=== PATIENT | female | born 1985 | race African-American/Black ===

== ENCOUNTER 2020-07-12 20:40 | Emergency (ER) | payer OTHER ==
[2020-07-12 21:02] VITALS: BP 113/73; PULSE 93; TEMP 98.2; BMI 29.2
[2020-07-12] MEDS ORDERED: ACETAMINOPHEN 1000 MG/100 ML VIAL (NON FORMULARY) IVPB ONE (21:55)
[2020-07-12] MEDS ORDERED: MORPHINE SULFATE 2 MG/ML VIAL ONE (22:03)
[2020-07-12] MEDS ORDERED: MORPHINE SULFATE 2 MG/ML VIAL IVPUSH ONE (22:03)
[2020-07-12] MEDS ORDERED: SODIUM CHLORIDE 1,000 ML IV STA (22:03)
[2020-07-12 22:45] LABS: BASO % 0.8 % (0-2.0); EOS % 1.8 % (0-4.5); HEMATOCRIT 36.6 % (32.4-45.2); HEMOGLOBIN 12.1 GM/dL (10.7-15.3); LYMPH % 34.4 % (8-40); MCH 27.9 pg (25.7-33.7); MEAN CELL VOLUME 84.5 fl (80-96); MEAN PLT VOLUME 7.8 fl (7.5-11.1); MONO % 8.1 % (3.8-10.2); NEUT % 54.9 % (42.8-82.8); PLATELET COUNT 264 K/MM3 (134-434); RBC 4.34 M/mm3 (3.60-5.2); RDW 12.8 % (11.6-15.6); WHITE BLOOD COUNT 6.8 K/mm3 (4.0-10.0)
[2020-07-12 23:04] LABS: CHLORIDE 109 mmol/L (98-107); POTASSIUM 3.9 mmol/L (3.5-5.1); SODIUM 140 mmol/L (136-145)
[2020-07-12 23:06] LABS: ALBUMIN 3.1 g/dl (3.4-5.0); ANION GAP 4 MMOL/L (8-16); BLOOD UREA NITROGEN 14.6 mg/dL (7-18); CALCIUM 8.7 mg/dL (8.5-10.1); CO2 27 mmol/L (21-32); GLUCOSE,RANDOM 96 mg/dL (74-106)
[2020-07-12 23:09] LABS: CREATININE 0.7 mg/dL (0.55-1.3); SGOT/AST 12 U/L (15-37); SGPT/ALT 18 U/L (13-61)
[2020-07-12 23:10] LABS: TOT PROT 6.8 g/dl (6.4-8.2)
[2020-07-12 23:12] LABS: ALK PHOS 64 U/L (45-117)
[2020-07-12 23:15] LABS: BILIRUBIN,TOTAL 0.2 mg/dL (0.2-1)
== END 2020-07-13 03:30 | disposition home or self-care (01) ==
LOC: JER 20:40
PROC: 3E0333Z Introduction of Anti-inflammatory into Peripheral Vein, Percutaneous Approach (ICD-10-PCS; principal; 2020-07-12)
PROC: 3E033NZ Introduction of Analgesics, Hypnotics, Sedatives into Peripheral Vein, Percutaneous Approach (ICD-10-PCS; 2020-07-12)
PROC: 3E0337Z Introduction of Electrolytic and Water Balance Substance into Peripheral Vein, Percutaneous Approach (ICD-10-PCS; 2020-07-12)
DX: R10.31 Right lower quadrant pain (principal); N83.201 Unspecified ovarian cyst, right side
CPT/HCPCS: 36415; 74177-TC; 76830-TC; 80053; 81003; 84702; 84703; 85025; 99285-25; J0131